=== PATIENT | female | born 1995 | race Caucasian/White ===

== ENCOUNTER 2017-08-17 13:36 | Outpatient (CLI) | payer OTHER ==
--- NOTE | 2017-08-17 14:58 | ULT ---
DIAGNOSTIC RIGHT BREAST ULTRASOUND: Date: 08/17/17 Left breast ultrasound performed as comparison. CLINICAL HISTORY: Palpable region of pain of the upper right breast. No prior comparison. FINDINGS: Real-time sonography performed at the superior aspect of the right breast at the site of patient's p ain. Real-time sonography reveals a diffuse heterogeneity of the breast tissue without evidence of f ocal mass or cyst. Contralateral left breast imaging reveals a similar appearance with heterogeneous breast parenchyma. IMPRESSION: BIRADS Category 2 - benign findings. Patient will be referred back to her clinician to undergo furth er management for patient's area of pain. If findings do not resolve as clinically appropriate, [facility] short-term imaging follow-up to further evaluation. Findings and recommendations were discussed with the patient at the time of diagnostic exam. CODE CR. POS: [facility]
== END 2017-08-17 13:37 | disposition home or self-care (01) ==
LOC: ULT 13:36 → EDBD 14:00
PROVIDERS: ATTEND Internal Medicine
DX: N63.10 Unspecified lump in the right breast, unspecified quadrant (principal)

== ENCOUNTER 2018-10-13 12:47 | Outpatient (CLI) | payer OTHER ==
--- NOTE | 2018-10-13 14:33 | RAD ---
CHEST PA AND LATERAL: Date: 10/13/18 HISTORY: 23-year-old female with history of fever of unknown origin. FINDINGS: Heart size is normal. The lungs are clear. IMPRESSION: No significant acute intrathoracic disease. POS: [facility]
== END 2018-10-13 12:48 | disposition home or self-care (01) ==
LOC: BICRAD 12:47
PROVIDERS: ATTEND Internal Medicine
DX: R50.9 Fever, unspecified (principal)
CPT/HCPCS: 36415; 71046; 85025

== ENCOUNTER 2018-10-21 13:39 | Outpatient (CLI) | payer OTHER ==
--- NOTE | 2018-10-21 16:38 | ULT ---
LIMITED SONOGRAPHIC EVALUATION OF THE LEFT NECK AT THE LEVEL OF THE SUBMANDIBULAR GLAND 10/21/18 HISTORY: Lymphadenopathy. Patient complains of a palpable sensitive area in the left submandibular region. FINDINGS: There is a hypoechoic structure seen in the left neck likely related to the left submandibular gland. Immediately adjacent to the presumed imaged submandibular gland are two hypoechoic masses, one measu ring approximately 10 mm and the second measuring approximately 6 mm in greatest dimension with sugge stion of echogenic areas especially within the larger structure, and findings are likely related to m ildly prominent lymph nodes in this region. No other soft tissue mass is appreciated. IMPRESSION: Two hypoechoic structures within the left aspect of the neck adjacent to the left submandibular gland s which likely represent lymph nodes which are overall nonspecific and not enlarged by measurements. If patient's symptoms persists, CT scan of the neck may be helpful for further evaluation. POS: [facility]
== END 2018-10-21 13:40 | disposition home or self-care (01) ==
LOC: ULT 13:39
PROVIDERS: ATTEND Internal Medicine
DX: R10.2 Pelvic and perineal pain (principal); R59.0 Localized enlarged lymph nodes
CPT/HCPCS: 76999